=== PATIENT | female | born 1960 | race Caucasian/White ===

== ENCOUNTER 2018-04-24 21:57 | Emergency (ER) | payer OTHER ==
[~2018-04-24] VITALS: Ht 154.9 cm; Wt 83.0 kg
[2018-04-24] MEDS ORDERED: KETOROLAC 30MG/ML VIAL IV STA (22:36)
[2018-04-24] MEDS ORDERED: SODIUM CHLORIDE 0.9% 1,000 ML IV ONE (22:36)
[2018-04-24 22:44] LABS: CLARITY URINE CLEAR (CLEAR); COLOR URINE YELLOW (YELLOW); KETONES URINE NEGATIVE (NEGATIVE); LEUKOCYTE ESTERASE URINE NEGATIVE (NEGATIVE); NITRITE URINE NEGATIVE (NEGATIVE); OCCULT BLOOD URINE NEGATIVE (NEGATIVE); PROTEIN URINE NEGATIVE (NEGATIVE); SPECIFIC GRAVITY URINE 1.035 (1.005-1.030); UROBILINOGEN URINE 0.2 E.U./dL (0.2-1.0)
[2018-04-24] MEDS ORDERED: CYCLOBENZAPRINE 10MG TABLET PO ONE (22:45)
[2018-04-25] MEDS ORDERED: MORPHINE SULFATE 4 MG/ML CPJ (NOT FOR IM USE) IV ONE (00:30)
[2018-04-25] MEDS ORDERED: SODIUM CHLORIDE 0.9% 1,000 ML IV ONE (00:45)
[2018-04-25] MEDS ORDERED: MORPHINE SULFATE 10 MG/ML CPJ IV NR (00:45)
[2018-04-25 00:48] LABS: CHLORIDE 104 mEq/L (98-107); HEMATOCRIT. 40.9 % (36.0-48.0); HEMOGLOBIN. 13.4 g/dL (12.0-16.0); MEAN CORPUSCULAR HEMOGLOBIN 28.8 pg (28.0-32.0); MEAN CORPUSCULAR VOLUME 87.6 fL (81.0-99.0); MEAN PLATELET VOLUME 8.8 fl (7.4-10.4); PLATELET 224 x1000/uL (130-400); RED BLOOD CELL COUNT 4.67 mill/uL (4.2-5.4); RED CELL DISTRIBUTION WIDTH 13.4 % (11.6-14.6)
[2018-04-25 01:48] LABS: PLATELET ESTIMATE NORMAL
[2018-04-25] MEDS ORDERED: IOHEXOL-300 100 ML BOTTLE ONE (03:24)
[2018-04-25 05:31] VITALS: BP 111/53
== END 2018-04-25 05:52 | disposition home or self-care (01) ==
LOC: ER 21:57
DX: N23 Unspecified renal colic (principal); E11.9 Type 2 diabetes mellitus without complications; I10 Essential (primary) hypertension; Z98.890 Other specified postprocedural states
CPT/HCPCS: 36415; 74177; 80053; 81003; 82962; 83690; 85025; 96374; 96375; 99284; J1885; J2270; J7030; Q9967